=== PATIENT | male | born 1965 | race Caucasian/White ===

== ENCOUNTER 2016-07-05 16:06 | Emergency (ER) | payer OTHER ==
[~2016-07-05 16:06] MED LIST: DALVANCE500 MG IV; NO MEDICATIONS
== END 2016-07-05 17:14 | disposition home or self-care (01) ==
LOC: CFTX 16:06
DX: L03.319 Cellulitis of trunk, unspecified (principal); I10 Essential (primary) hypertension; J44.9 Chronic obstructive pulmonary disease, unspecified; F17.200 Nicotine dependence, unspecified, uncomplicated
CPT/HCPCS: 87070; 87077; 87186; 87205; 96372; 99284; J1885